=== PATIENT | male | born 1965 | race African-American/Black ===

== ENCOUNTER 2016-07-15 02:52 | Emergency (ER) | payer SELFPAY ==
[~2016-07-15] VITALS: Ht 182.9 cm; Wt 84.5 kg
[~2016-07-15 02:52] MED LIST: ASPI-664 PO; CYCL-319 PO; HYDR-3720 PO; HYDR-762 PO; IBUP800T25 PO; INSU100V14 SC; LISI-313 PO; MAGN296S40 PO; NAPR-260 PO; NAPR-688 PO; NPH,100V SC; POLY17PO6 PO
[2016-07-15 03:02] VITALS: Ht 182.9 cm; Wt 84.5 kg
== END 2016-07-15 03:12 | disposition left against medical advice (07) ==
LOC: E/R 02:52
DX: Z53.21 Procedure and treatment not carried out due to patient leaving prior to being seen by health care provider (principal)
CPT/HCPCS: 82962

== ENCOUNTER 2016-12-19 07:15 | Inpatient (IN) | payer OTHER ==
[~2016-12-19] VITALS: Ht 182.9 cm; Wt 85.0 kg
[2016-12-19 07:18] VITALS: Ht 182.9 cm; Wt 85.0 kg
[2016-12-19] MEDS ORDERED: SOD CHLORIDE 0.9% 1,000 ML IV STA (07:34)
[2016-12-19] MEDS ORDERED: NITROGLYCERIN 2% 1 GM OINT PKT TD STA (07:34)
--- NOTE | 2016-12-19 07:50 | ERA ---
ER Documentation Chief Complaint Date/Time DATE: 12/19/16 TIME: 07:37 Chief Complaint CP HPI 51-year-old male history of diabetes and hypertension presents to the ED via rescue ambulance as a STEMI from the emergency department at [facility]. Patient was awakened at 3 AM with acute onset of severe, sharp and pressure-like midsternal chest pain that radiated to the back with shortness of breath but no nausea, vomiting or diaphoresis. EKG at [facility] revealed diffuse ST segment elevations and with significant risk factors and concerning symptoms in this patient with significant risk factors and concerning symptoms. Patient received aspirin 325 mg and sublingual nitroglycerin 3 with improvement of symptoms. He denies URI symptoms or cough. No leg pain or swelling. No abdominal pain or low back pain. No skin rash. No fevers or chills. ROS All systems reviewed and are negative except as per history of present illness. Medications Home Meds Reported Medications Lisinopril* (Lisinopril*) 10 Mg Tablet, 10 MG PO DAILY, #30 TAB 12/19/16 Insulin Detemir (Levemir Flextouch) 100 Unit/1 Ml Insuln.pen, 50 UNIT SQ DAILY 12/19/16 Metformin Hcl* (Metformin Hcl*) 1,000 Mg Tablet, 1000 MG PO WITH BREAKFAST DINNE , #60 TAB 12/19/16 Hydrocodone/Acetaminophen ([place] 5-325 Tablet) 1 Each Tablet, 1 EACH PO Q6H Y for NEEDED, TAB 12/19/16 Insulin Regular, Human (Humulin R) 100 Units/Ml Vial, 0 SC SLIDING SCALE AC, VIAL 12/06/14 Aspirin* (Aspirin* EC) 81 Mg Tablet.dr, 81 MG PO DAILY, TAB 12/06/14 Discontinued Reported Medications Nph, Human Insulin Isophane (Humulin N) 100 Units/Ml Vial, 45 UNIT SC BID, VIAL 12/06/14 Lisinopril* (Lisinopril*) 5 Mg Tablet, 5 MG PO DAILY, TAB 12/06/14 Discontinued Scripts Naproxen* (Naprosyn*) 500 Mg Tablet, 500 MG PO BID Y for PAIN AND/OR INFLAMMATION, #30 TAB Prov:JONAH SCOTT PA-C 12/27/15 Ibuprofen* (Motrin*) 800 Mg Tab, 800 MG PO Q6H Y for PAIN AND OR ELEVATED TEMP, #30 TAB Prov:BLAINE LEMOS MD 09/13/15 Hydrocodone Bit-Acetaminophen* ([place]*) 10-325 Mg Tablet, 1 TAB PO Q6 Y for PAIN , #10 TAB Prov:PORSHA PURDY PA-C 08/25/15 Ibuprofen* (Motrin*) 800 Mg Tab, 800 MG PO Q6H Y for PAIN AND OR ELEVATED TEMP, #30 TAB Prov:PORSHA PURDY PA-C 08/25/15 Cyclobenzaprine Hcl* (Cyclobenzaprine Hcl*) 10 Mg Tablet, 10 MG PO TID, #20 TAB Prov:PORSHA PURDY PA-C 08/25/15 Hydrocodone Bit-Acetaminophen* ([place]*) 7.5-325 Tablet, 1 TAB PO Q4H Y for PAIN , #14 TAB Prov:AGNES FERNANDEZ DO 06/30/15 Ibuprofen* (Motrin*) 800 Mg Tab, 800 MG PO Q6H Y for PAIN AND OR ELEVATED TEMP, #30 TAB Prov:AGNES FERNANDEZ DO 06/30/15 Naproxen* (Naproxen*) 500 Mg Tablet, 500 MG PO BID Y for PAIN, #10 TAB Prov:STEVENSONKEO DO 12/06/14 Polyethylene Glycol* (Miralax*) 17 Gm Powd.pack, 17 GM PO DAILY, #10 PACKET Prov:STEVENSONKEO DO 12/06/14 Magnesium Citrate* (Magnesium Citrate*) 296 Ml Solution, 296 ML PO ONCE, #1 BOTTLE Prov:KEO GAMINO DO 12/06/14 Allergies Allergies: Coded Allergies: No Known Allergy (Unverified , 12/19/16) PMhx/Soc Reviewed in chart. As per HPI. History of Surgery: Yes (Oral Cyst Biopsy, RIGHT MIDDLE FINGER(1980s)) Anesthesia Reaction: No Hx Neurological Disorder: Yes (Neuropathy) Hx Respiratory Disorders: No Hx Cardiac Disorders: Yes (HTN) Hx Psychiatric Problems: No Hx Miscellaneous Medical Probl: Yes (DM) Hx Alcohol Use: Yes (Social) Hx Substance Use: Yes (Mrijuana) Hx Tobacco Use: Yes (1/2 pack/day) Smoking Status: Former smoker FmHx No stroke or sudden cardiac . No cancer Physical Exam Vitals Vital Signs Date Time Temp Pulse Resp B/P Pulse Ox O2 Delivery O2 Flow Rate FiO2 12/19/16 09:53 76 20 124/56 100 Nasal Cannula 2.0 12/19/16 07:25 89 20 111/74 100 Nasal Cannula 2.0 12/19/16 07:24 Nasal Cannula 2 12/19/16 07:18 98.1 91 18 97/66 99 Physical Exam GENERAL: Sleepy but easily araousable, well-appearing, no acute distress. SKIN: Warm, dry, no rash, No petechiae. No ecchymoses or bruising. HEAD: Atraumatic NECK: Supple, no tenderness, full range of motion. No lymphadenopathy. EYES: Pupils are equal, round and reactive to light, extraocular movements are intact, Conjunctiva, not injected, sclera anicteric. ENT: Mucous membranes are moist. Pharynx is clear without erythema or exudate. CARDIOVASCULAR: Regular rate and rhythm, S1, S2, No murmurs, rubs or gallops. No edema Pulses are 4+ in all extremities. RESPIRATORY: Breath sounds are equal bilaterally. No rales, rhonchi or wheezes. CHEST WALL: No tenderness or deformity. No ecchymosis or bruising GASTROINTESTINAL: Bowel sounds present, nondistended. Soft, nontender, no rebound or guarding. No masses or abnormal pulsations. BACK: No spinal tenderness or paraspinal muscle spasm. No costovertebral angle tenderness. MUSCULOSKELETAL: Normal ROM, no deformity. No calf swelling or tenderness, NEUROLOGIC: Alert and oriented. CN II-XII intact. No focal neurological deficit observed. Normal speech. LYMPHATICS: No gross cervical, axillary or inguinal lymphadenopathy. No Lymphedema. PSYCHIATRIC: Cooperative. Appropriate mood and affect. Patient does not appear anxious or depressed. Result Diagram: 12/19/1671912/19/1620 Results 24 hrs Laboratory Tests Test 12/19/16 07:20 White Blood Count 8.010^3/ul Red Blood Count 4.4010^6/ul Hemoglobin 13.2g/dl Hematocrit 40.3% Mean Corpuscular Volume 91.6fl Mean Corpuscular Hemoglobin 30.0pg Mean Corpuscular Hemoglobin Concent 32.8g/dl Red Cell Distribution Width 12.2% Platelet Count 39216^3/UL Mean Platelet Volume 9.7fl Neutrophils % 49.8% Lymphocytes % 37.5% Monocytes % 9.9% Eosinophils % 1.9% Basophils % 0.6% Nucleated Red Blood Cells % 0.0/100WBC Neutrophils # (Manual) 4.010^3/ul Lymphocytes # 3.010^3/ul Monocytes # 0.810^3/ul Eosinophils # 0.210^3/ul Basophils # 0.110^3/ul Nucleated Red Blood Cells # 0.010^3/ul Prothrombin Time 11.5Sec Prothrombin Time Ratio 0.9 INR International Normalized Ratio 0.84 Activated Partial Thromboplast Time 26.4Sec Sodium Level 132mmol/L Potassium Level 4.3mmol/L Chloride Level 101mmol/L Carbon Dioxide Level 24mmol/L Anion Gap 11 Blood Urea Nitrogen 19mg/dl Creatinine 0.85mg/dl Glucose Level 377mg/dl Calcium Level 9.2mg/dl Total Bilirubin 0.1mg/dl Direct Bilirubin 0.00mg/dl Indirect Bilirubin 0.1mg/dl Aspartate Amino Transf (AST/SGOT) 48IU/L Alanine Aminotransferase (ALT/SGPT) 91IU/L Alkaline Phosphatase 106IU/L Troponin I < 0.012ng/ml Total Protein 6.7g/dl Albumin 3.6g/dl Globulin 3.10g/dl Albumin/Globulin Ratio 1.16 Ethyl Alcohol Level < 10.0mg/dl Current Medications Medications (Trade) Dose Ordered Sig/Anupama Route PRN Reason Start Time Stop Time Status Last Admin Dose Admin Sodium Chloride (NS) 1,000 ml @ 1,000 mls/hr Q1H STAT IV 12/19/16 07:34 12/19/16 08:33 DC 12/19/16 07:40 Nitroglycerin (Nitroglycerin 2% Oint) 1 inch ONCE STAT TD 12/19/16 07:34 12/19/16 07:36 DC 12/19/16 09:54 ROCEDURE: XR Chest. CLINICAL INDICATION: Chest pain. TECHNIQUE: Single frontal view of the chest was obtained. COMPARISON: Chest x-ray 12/19/2016 07:44 a.m. FINDINGS: The soft tissues are normal. There are degenerative osteophytes in the thoracic spine. There is a suboptimal inspiration given the heart is somewhat transverse configuration. The heart, cardiomediastinal silhouette and hilar structures are normal. The pulmonary vasculature is normal. There is a suboptimal inspiration. There is a left-sided aorta. The lungs are clear. The costophrenic angles are normal. IMPRESSION: 1. Spine. No evidence of active cardiopulmonary disease. RPTAT:AAJJ Physician Reta Date Time Electronically viewed and signed by Jere Block Physician on 12/19/2016 08:11 JM/ EKG#1: Time: 07:15. Sinus rhythm. Ventricular rate 93. Normal SD and QRS. J- point elevations in leads V3 through V6 to 3 and aVF consistent with early repolarization. No acute ST segment elevation or depression. No ectopy. EP interpretation: Borderline ECG EKG#2: Time: 07:55. Sinus rhythm. Ventricular rate 83. Normal SD and QRS. J- point elevations in leads V3 through V6 to 3 and aVF consistent with early repolarization. No acute ST segment elevation or depression. No ectopy. Unchanged. EP interpretation: Borderline ECG Procedures/MDM DOCUMENTS REVIEWED: ED nurse, Emergency department medical records from [facility] and EMS report. ED COURSE: Patient was immediately placed on a gurney. EKG was performed. Patient is already received aspirin and sublingual nitroglycerin. Cardiology paged. No criteria for ST segment elevation myocardial infarction. REEXAMINATION/REEVALUATION: Time: 08:00. Doing well. Sinus rhythm without ectopy. No chest pain. MEDICAL DECISION MAKIN-year-old male history of diabetes and hypertension presents to the ED via rescue ambulance as a STEMI from the emergency department at [facility]. Serial EKGs revealed no evidence of ST segment elevations consistent with acute ischemia. Troponin is not elevated. No radiographic evidence of pneumonia or pneumothorax. Doubt pulmonary embolism or aortic dissection. Patient with high risk for acute coronary syndrome presents with atypical chest pain. Evaluated in the ED by cardiology. No indication for acute intervention. Will be admitted for further risk stratification. Counseled patient regarding diagnosis, diagnostic results and plan for admission. CRITICAL CARE TIME: Due to the high probability of sudden clinically significant respiratory, hemodynamic and cardiovascular deterioration, this patient with chest pain and possible STEMI required multiple, frequent reevaluations of vital signs and response to therapy. Additional critical care time was spent in Interpretation of relevant clinical data including labs and imaging studies and consultation with The welding machine operator arc, And arranging ongoing care and admission with the admitting physician Dr. Reyes. TOTAL CRITICAL CARE TIME: 35 minutes not including other separately reportable procedures. CALLS/CONSULTS: Time 07:15, Dr. Aquiles Roman, Recommends EKG is transmitted. Will check troponin prior to decision regarding acute intervention. 08:15 At bedside. Agrees that no criteria for STEMI or acute intervention. Recommends admission for further risk stratification PATIENT CARE TRANSITIONED: Time: 09:50, Dr. Cohen. Admission to telemetry. Departure Diagnosis: Primary Impression: Chest pain with high risk for cardiac etiology Additional Impressions: Diabetes mellitus out of control Qualified Code: E11.8 - Uncontrolled type 2 diabetes mellitus with complication, with long-term current use of insulin Hypertension Qualified Code: I10 - Essential hypertension Condition: Serious PREETI BEAL MD Dec 19, 2016 07:47 PREETI BEAL MD Dec 19, 2016 07:47
--- NOTE | 2016-12-19 08:11 | RADRPT ---
PROCEDURE: XR Chest. CLINICAL INDICATION: Chest pain. TECHNIQUE: Single frontal view of the chest was obtained. COMPARISON: Chest x-ray 12/19/2016 07:44 a.m. FINDINGS: The soft tissues are normal. There are degenerative osteophytes in the thoracic spine. There is a s uboptimal inspiration given the heart is somewhat transverse configuration. The heart, cardiomedias tinal silhouette and hilar structures are normal. The pulmonary vasculature is normal. There is a tavarez boptimal inspiration. There is a left-sided aorta. The lungs are clear. The costophrenic angles ar e normal. IMPRESSION: 1. Spine. No evidence of active cardiopulmonary disease. RPTAT:AAJJ Physician Reta Date Time Electronically viewed and signed by Jere Block Physician on 12/19/2016 08:11 /
[2016-12-19 08:20] LABS: BASOPHIL # 0.1 10^3/ul (0.0-0.1); BASOPHILS % 0.6 % (0.0-2.0); EOSINOPHILS # 0.2 10^3/ul (0.0-0.5); EOSINOPHILS % 1.9 % (0.0-7.0); HEMATOCRIT 40.3 % (42.0-52.0); HEMOGLOBIN 13.2 g/dl (14.0-18.0); LYMPHOCYTES % 37.5 % (15.0-51.0); MEAN CORPUSCULAR HGB CONC 32.8 g/dl (32.0-37.0); MEAN CORPUSCULAR VOLUME 91.6 fl (82.0-101.0); MEAN PLATELET VOLUME 9.7 fl (7.4-10.4); MONOCYTE # 0.8 10^3/ul (0.3-0.9); MONOCYTES % 9.9 % (0.0-11.0); NEUTROPHILS % 49.8 % (39.0-77.0); PLATELET COUNT 242 10^3/UL (140-415); RED CELL DISTRIBUTION WIDTH 12.2 % (11.5-14.5)
[2016-12-19 08:22] LABS: ALANINE AMINOTRANSFERASE 91 IU/L (13-69); ALBUMIN 3.6 g/dl (3.3-4.9); ALBUMIN/GLOBULIN RATIO 1.16; ALKALINE PHOSPHATASE 106 IU/L (42-121); ANION GAP 11 (8-16); ASPARTATE AMINO TRANSFERASE 48 IU/L (15-46); BILIRUBIN,INDIRECT 0.1 mg/dl (0-1.1); BILIRUBIN,TOTAL 0.1 mg/dl (0.2-1.3); BLOOD UREA NITROGEN 19 mg/dl (7-20); CALCIUM 9.2 mg/dl (8.4-10.2); CARBON DIOXIDE 24 mmol/L (21-31); CHLORIDE 101 mmol/L (97-110); CREATININE 0.85 mg/dl (0.61-1.24); GLUCOSE 377 mg/dl (70-220); POTASSIUM 4.3 mmol/L (3.5-5.1); SODIUM 132 mmol/L (135-144); TOTAL PROTEIN 6.7 g/dl (6.1-8.1)
[2016-12-19 08:24] LABS: INR 0.84; PROTIME 11.5 Sec (12.2-14.2); PT RATIO 0.9
[2016-12-19 08:25] LABS: PARTIAL THROMBOPLASTIN TIME 26.4 Sec (25.0-35.0)
[2016-12-19 08:36] LABS: TROPONIN-I < 0.012 ng/ml (0.00-0.12)
--- NOTE | 2016-12-19 08:51 | CONS ---
Date/Time of Note Date/Time of Note DATE: 12/19/16 TIME: 08:43 Assessment/Plan Assessment/Plan Chief Complaint/Hosp Course Chest pain: By history somewhat atypical and may be chest wall pain. The initial EKGs show <0.5mm diffuse ST elevation likely from early repolarization in this young gentleman. No pathologic ST elevation. Bedside echo shows normal EF and no wall motion abnormalities, no effusion. He had a trop at [facility] which was negative and now one here which is also negative. Mediastinum on CXR looks normal as well. For now, would continue to trend trops and plan for stress testing likely Wednesday. DM HTN -ASA, lipitor -metoprolol 12.5mg BID if BP tolerates -if recurrence of chest pain, consider CTA of chest to evaluate for PE or less likely dissection Problems: Consultation Date/Type/Reason Admit Date/Time Date of Consultation: Dec 19, 2016 Type of Consultation: Cardiology Reason for Consultation Chest pain, ?STEMI Referring Provider: PREETI BEAL MD Hx of Present Illness 51 yo M with a h/o DM, HTN, who presented initially to [facility] with chest pain and was found to have a concerning EKG (possible STEMI) for which he was sent to [facility] for emergent cardiac cath. I was called by the ED MD and we reviewed the EKG and discussed the case. I did not feel at that time that the EKG met STEMI criteria. Upon interviewing the pt, he notes that he had pressure like chest pain which started around midnight and was ongoing until he came to the ED, at which time it subsided. He has had this pain before and workup has been unrevealing. He was resting when the symptoms started. He denies exertional symptoms in the past. No SOB, orthopnea, PND, edema. per HPI Past Medical History DM, HTN Social History Smoking Status: Former smoker Exam/Review of Systems Vital Signs Vitals Vital Signs Date Time Temp Pulse Resp B/P Pulse Ox O2 Delivery O2 Flow Rate FiO2 12/19/16 07:25 89 20 111/74 100 Nasal Cannula 2.0 12/19/16 07:18 98.1 Exam Constitutional: alert, oriented Psych: no complaints Head: atraumatic, normocephalic Neck: supple, No jvd Respiratory: clear to auscultation, No crackles/rales Cardiovascular: regular rate and rhythm, No edema, No systolic murmur Gastrointestinal: non-tender, soft Musculoskeletal: nl extremities to inspection Extremities: normal pulses Neurological: nl mental status, nl speech Results Result Diagram: 12/19/16 0720 12/19/16 0720 Results 24 hrs Laboratory Tests Test 12/19/16 07:20 White Blood Count 8.0 Red Blood Count 4.40 L Hemoglobin 13.2 L Hematocrit 40.3 L Mean Corpuscular Volume 91.6 Mean Corpuscular Hemoglobin 30.0 Mean Corpuscular Hemoglobin Concent 32.8 Red Cell Distribution Width 12.2 Platelet Count 242 Mean Platelet Volume 9.7 Neutrophils % 49.8 Lymphocytes % 37.5 Monocytes % 9.9 Eosinophils % 1.9 Basophils % 0.6 Nucleated Red Blood Cells % 0.0 Neutrophils # (Manual) 4.0 Lymphocytes # 3.0 H Monocytes # 0.8 Eosinophils # 0.2 Basophils # 0.1 Nucleated Red Blood Cells # 0.0 Prothrombin Time 11.5 L Prothrombin Time Ratio 0.9 INR International Normalized Ratio 0.84 Activated Partial Thromboplast Time 26.4 Sodium Level 132 L Potassium Level 4.3 Chloride Level 101 Carbon Dioxide Level 24 Anion Gap 11 Blood Urea Nitrogen 19 Creatinine 0.85 Glucose Level 377 H Calcium Level 9.2 Total Bilirubin 0.1 L Direct Bilirubin 0.00 Indirect Bilirubin 0.1 Aspartate Amino Transf (AST/SGOT) 48 H Alanine Aminotransferase (ALT/SGPT) 91 H Alkaline Phosphatase 106 Troponin I < 0.012 Total Protein 6.7 Albumin 3.6 Globulin 3.10 Albumin/Globulin Ratio 1.16 Ethyl Alcohol Level < 10.0 KAITLIN FREEMAN Dec 19, 2016 08:51
[2016-12-19] MEDS ORDERED: ACETAMINOPHEN 325 MG TAB PO PRN ×2 (10:30→11:30)
[2016-12-19] MEDS ORDERED: ONDANSETRON 4 MG INJ IV PRN ×2 (10:30→11:30)
[2016-12-19] MEDS ORDERED: METF1000 PO (10:40)
[2016-12-19] MEDS ORDERED: HYDR-906 PO (10:40)
[2016-12-19] MEDS ORDERED: INSU100I27 SQ (10:41)
[2016-12-19] MEDS ORDERED: LISI10TA2 PO (10:42)
[2016-12-19] MEDS: ACCU-CHEK XX SCH ×3 (11:30→20:12)
[2016-12-19] MEDS ORDERED: INSULIN DETEMIR [LEVEMIR] 3ML CART SC SCH (11:30)
[2016-12-19] MEDS ORDERED: GLUCOSE GEL 15 GRAM TUBE BUCCAL PRN (12:00)
[2016-12-19] MEDS ORDERED: GLUCAGON 1 MG INJ IM PRN (12:00)
[2016-12-19] MEDS ORDERED: DEXTROSE 50% 50 ML SYRINGE IV PRN ×2 (12:00)
[2016-12-19] MEDS: INSULIN ASPART [NOVOLOG] 3 ML PEN SC SCH ×3 (12:00→20:12)
[2016-12-19] MEDS ORDERED: GLUCOSE GEL 15 GRAM TUBE PO PRN ×2 (12:00)
--- NOTE | 2016-12-19 13:27 | HP ---
DATE OF ADMISSION: 12/19/2016 CHIEF COMPLAINT: Chest pain. HISTORY OF PRESENT ILLNESS: Mr. Martinez, presented to the Emergency room at [facility] with chest pain and is transferred to [facility] with concerning EKG changes. The patient states that he began having this pain last night while he was at home watching television, that his pain is central and sharp,h which comes and goes and lasts for approximately 30 seconds at an occasion. He denies any associated nausea, vomiting, or diaphoresis. The patient denies any pleuritic component to this, or reproducible tenderness. He does state that he did have recent cocaine use. PAST MEDICAL HISTORY: Significant for diabetes and hypertension. MEDICATIONS: As an outpatient include Levemir and sliding-scale insulin. Metformin 1000 mg twice a day, aspirin 81 mg daily, and lisinopril 10 mg daily. ALLERGIES: NO KNOWN DRUG ALLERGIES. SOCIAL HISTORY: Patient lives in [place] at a intermediate, and is independent of activities of daily living. Smokes approximately a pack per day. Does drink alcohol but states his last use was several days ago, where he had 1 beer only. Does have a cocaine history as stated above. FAMILY HISTORY: Noncontributory. REVIEW OF SYSTEMS: Five systems were reviewed and found not to be revealing. PHYSICAL EXAMINATION: VITAL SIGNS: On examination, blood pressure is 111/74, pulse rate 89, respirations 20, and temperature is 98.1. GENERAL: The patient is a pleasant man in no acute distress, alert and oriented x3. HEENT: Normocephalic, atraumatic. Without evidence of scleral icterus or perioral cyanosis. Mucous membranes moist. NECK: Soft and supple, without masses. No jugular venous distention. No carotid bruits. CHEST: Clear to auscultation percussion bilaterally. HEART: Regular rate and rhythm. S1-S2. No added sounds. ABDOMEN: Soft, nontender, nondistended, without palpable hepatosplenomegaly. EXTREMITIES: Without clubbing, cyanosis, or edema. SKIN: Without rashes. NEUROLOGIC: Grossly intact. LABORATORY STUDIES: Reveal hemoglobin 13.2 g/dL, white count of 8000, platelets of 242,000. INR 0.84. Sodium 132, potassium 4.3, chloride 101, bicarb 24, BUN 19, creatinine 0.85, glucose 377. Liver function tests remarkable for ALT 91, AST 48. Troponin is negative. Alcohol screen is negative. EKG: The EKG does show evidence of ST-segment elevations rather diffusely and is felt to be repolarization abnormality. Patient has already been seen by cardiology and is deemed not an emergent cath lab radiology technician candidate. ASSESSMENT AND PLAN: 1. Cardiac: Patient with atypical chest pain. We will plan to further risk stratify with serial troponin's an echocardiogram. 2. Cocaine abuse. 3. Diabetes. 4. Prophylaxis with Lovenox. Dictated By: Ralph Reyes MD /rhea/felicitas /Document#: [id number]
[2016-12-19 15:55] VITALS: BP 128/73; PULSE 93; RESP 18
[2016-12-19 16:00] VITALS: PULSE 102
[2016-12-19 16:51] LABS: CREATINE KINASE 85 IU/L (23-200)
[2016-12-19 16:52] LABS: CK-MB 2.63 ng/ml (0.0-2.4)
[2016-12-19 17:19] LABS: TROPONIN-I < 0.012 ng/ml (0.00-0.12)
[2016-12-19] MEDS: metFORMIN 500 MG TAB PO SCH (18:14)
[2016-12-19 20:04] VITALS: PULSE 87
[2016-12-19 20:15] VITALS: BP 110/59; RESP 20
[2016-12-19 23:27] LABS: CREATINE KINASE 70 IU/L (23-200)
[2016-12-19 23:40] LABS: CK-MB 2.07 ng/ml (0.0-2.4); TROPONIN-I < 0.012 ng/ml (0.00-0.12)
[2016-12-20] VITALS (12 sets, daily range): BP systolic 107–147; BP diastolic 60–93; PULSE 72–117; RESP 17–20
[2016-12-20] MEDS: ACCU-CHEK XX SCH ×4 (02:00→21:00)
[2016-12-20] MEDS: morphine 2 MG INJ IV PRN ×2 (02:11→08:27)
[2016-12-20] MEDS: metFORMIN 500 MG TAB PO SCH ×2 (07:55→17:55)
[2016-12-20] MEDS: INSULIN ASPART [NOVOLOG] 3 ML PEN SC SCH ×4 (07:58→21:12)
[2016-12-20] MEDS: ASPIRIN (EC) 81 MG TAB PO SCH (08:24)
[2016-12-20] MEDS: LISINOPRIL 10 MG TAB PO SCH (08:24)
--- NOTE | 2016-12-20 11:04 | RADRPT ---
Echocardiogram Report Patient Name: SHARON MEJIAS Gender: Male Date: 1965 Study Date: 19-Dec-2016 Lumber Material Handler: Mark Shields [facility] Location: -1 Ref. Physician: KAITLIN ROMAN Quality: Adequate Procedures: Transthoracic echocardiogram with complete 2D, M-Mode, and doppler examination. Indications: NSTEMI. 2D/M Mode Doppler Measurement Value Normal Ranges Measurement Value Normal Ranges LVIDd 2D 4.3 3.5 - 5.6 cm AV Peak Bj 1.2 m/sec LVIDs 2D 2.9 2.1 - 4.1 cm AV Peak PG 5.0 mmHg FS 2D 31.7 % LVOT Peak Bj 0.8 m/sec LVPWd 2D 1.3 0.6 - 1.1 cm LVOT Peak PG 3.0 mmHg IVSd 2D 1.3 0.6 - 1.1 cm MV E Peak Bj 0.7 m/sec IVS/LVPW 2D 1.0 MV A Peak Bj 0.7 m/sec AoR Diam 2D 3.0 2.0 - 3.7 cm MV E/A 1.0 LA/Ao 2D 1 0 - 1 MV Decel Time 151 msec EDV 2D 79.0 cm3 MV E/A 1.0 ESV 2D 25.2 cm3 TR Peak Bj 2.3 m/sec LA Dimen 2D 3.7 2.3 - 4.0 cm TR Peak PG 20.0 mmHg RVSP 23.0 mmHg Findings Left Ventricle: Normal left ventricular systolic function. Normal left ventricular cavity size. Mild concentric left ventricular hypertrophy. Ejection fraction is visually estimated at 60 %. Tissue Doppler/Mitral Doppler indices are consistent with impaired relaxation (Stage I diastolic dysfunction). Right Ventricle: Normal right ventricular size. Normal right ventricular systolic function. Left Atrium: There is mild enlargement of left atrium. Right Atrium: There is mild enlargement of right atrium. Mitral Valve: Mild mitral leaflet calcification. Trace mitral regurgitation. Aortic Valve: Normal appearance of the aortic valve. No significant aortic stenosis or insufficiency. Tricuspid Valve: Normal appearance of the tricuspid valve. Estimated peak PA systolic pressure 23 mmHg. There is mild tricuspid regurgitation. Pulmonic Valve: Pulmonic valve not well visualized. There is trace pulmonic regurgitation. Pericardium: Normal pericardium with no significant pericardial effusion. Aorta: Normal aortic root. IVC: Normal size and normal respiratory collapse consistent with normal right atrial pressure. Conclusions 1.Normal left ventricular systolic function. Normal left ventricular cavity size. Mild concentric left ventricular hypertrophy. Ejection fraction is visually estimated at 60 %. Tissue Doppler/Mitral Doppler indices are consistent with impaired relaxation (Stage I diastolic dysfunction). 2.No significant valvular stenosis or regurgitation seen. 3.Estimated peak PA systolic pressure 23 mmHg based on RA pressure of 3 mmHg. Electronically Signed By: Kaitlin Roman 20-Dec-2016 11:04:03 -0700 Patient Name: SHARON MEJIAS Study Date: 19-Dec-2016 [id number]
--- NOTE | 2016-12-20 11:37 | PN ---
Date/Time of Note Date/Time of Note DATE: 12/20/16 TIME: 11:35 Assessment/Plan VTE Prophylaxis VTE Prophylaxis Intervention: anti-embolic stocking Lines/Catheters IV Catheter Type (from Nrsg): Saline Lock Assessment/Plan Assessment/Plan 1. cards: atypical chest pain, await stress in am 2. pulm: cta to r/o dissection or PE as cause cp 3. ?gerd, start pepcid 4. anticipate d/c home in am 5/ ?cocaine use, await tox Subjective 24 Hr Interval Summary Free Text/Dictation still having intermittant chest pain states that he has chronic back pain for which he takes oxycontin 30mg bid, will prescribe 50% dose Exam/Review of Systems Vital Signs Vitals Vital Signs Date Time Temp Pulse Resp B/P Pulse Ox O2 Delivery O2 Flow Rate FiO2 12/20/16 08:04 98 12/20/16 04:08 98.3 20 107/78 97 12/19/16 15:55 Room Air 12/19/16 13:41 2.0 Intake and Output 12/19/16 12/19/16 12/20/16 15:00 23:00 07:00 Intake Total 950 ml Output Total 400 ml Balance 550 ml Exam nad, ctab, rrr, soft nt Results Result Diagram: 12/19/16 0720 12/19/16 0720 Results 24 hrs Laboratory Tests Test 12/19/16 13:49 12/19/16 15:45 12/19/16 17:17 12/19/16 20:02 Bedside Glucose 278 H 329 H 203 Creatine Kinase 85 Creatine Kinase Index 3.1 Creatinine Kinase MB (Mass) 2.63 H Troponin I < 0.012 Test 12/19/16 22:13 12/20/16 02:16 12/20/16 07:52 Creatine Kinase 70 Creatine Kinase Index 3.0 Creatinine Kinase MB (Mass) 2.07 Troponin I < 0.012 Bedside Glucose 208 303 H Medications Medications Current Medications Acetaminophen (Tylenol Tab) 650 mg Q4H PRN PO pain/fever; Start 12/19/16 at 11: 30 Hydralazine HCl (Apresoline) 25 mg Q6H PRN PO sbp>160; Start 12/19/16 at 11:30 Ondansetron HCl (Zofran Inj) 4 mg Q4H PRN IV nausea Last administered on 02:11; Admin Dose 4 MG; Start 12/19/16 at 11:30 Morphine Sulfate (morphine) 2 mg Q2H PRN IV pain Last administered on 08:27; Admin Dose 2 MG; Start 12/19/16 at 11:30 Diagnostic Test (Pha) (Accu-Chek) 1 ea 02 XX ; Start 12/20/16 at 02:00 Aspirin (Halfprin) 81 mg DAILY PO Last administered on 12/20/16 08:24; Admin Dose 81 MG; Start 12/20/16 at 09:00 Lisinopril (Zestril) 10 mg DAILY PO Last administered on 12/20/16 08:24; Admin Dose 10 MG; Start 12/20/16 at 09:00 Insulin Detemir (Levemir) 35 unit Q24H SC Last administered on 12/19/16 11:30; Admin Dose 35 UNIT; Start 12/19/16 at 11:30 Miscellaneous Information 1 ea NOTE XX ; Start 12/19/16 at 12:00 Glucose (Glutose) 15 gm Q15M PRN PO DECREASED GLUCOSE; Start 12/19/16 at 12:00 Glucose (Glutose) 22.5 gm Q15M PRN PO DECREASED GLUCOSE; Start 12/19/16 at 12:00 Dextrose (D50w Syringe) 25 ml Q15M PRN IV DECREASED GLUCOSE; Start 12/19/16 at 12:00 Dextrose (D50w Syringe) 50 ml Q15M PRN IV DECREASED GLUCOSE; Start 12/19/16 at 12:00 Glucagon (Glucagen) 1 mg Q15M PRN IM DECREASED GLUCOSE; Start 12/19/16 at 12:00 Glucose (Glutose) 15 gm Q15M PRN BUCCAL DECREASED GLUCOSE; Start 12/19/16 at 12: 00 GURJIT PORTILLO MD Dec 20, 2016 11:37
--- NOTE | 2016-12-20 11:51 | CONS ---
Date/Time of Note Date/Time of Note DATE: 12/20/16 TIME: 11:50 Assessment/Plan Assessment/Plan Chief Complaint/Hosp Course Chest pain: By history somewhat atypical and may be chest wall pain. The initial EKGs show <0.5mm diffuse ST elevation likely from early repolarization in this young gentleman. No pathologic ST elevation. Trops negative. Echo normal. DM HTN -ASA, lipitor -Lexiscan stress MPI tomorrow at 12:30 pm -NPO after midnight Problems: Consultation Date/Type/Reason Admit Date/Time Dec 19, 2016 at 10:08 Initial Consult Date 12/19/16 Type of Consultation: Cardiology Referring Provider: PREETI BEAL MD 24 HR Interval Summary Free Text/Dictation No o/n events. No chest pain. Exam/Review of Systems Vital Signs Vitals Vital Signs Date Time Temp Pulse Resp B/P Pulse Ox O2 Delivery O2 Flow Rate FiO2 12/20/16 08:04 98 12/20/16 04:08 98.3 20 107/78 97 12/19/16 15:55 Room Air 12/19/16 13:41 2.0 Intake and Output 12/19/16 12/19/16 12/20/16 15:00 23:00 07:00 Intake Total 950 ml Output Total 400 ml Balance 550 ml Exam Constitutional: alert, oriented Psych: no complaints Head: atraumatic, normocephalic Neck: No jvd Respiratory: clear to auscultation, No crackles/rales Cardiovascular: regular rate and rhythm, No edema Gastrointestinal: non-tender, soft Neurological: nl mental status, nl speech Results Result Diagram: 12/19/1671912/19/16 0720 Results 24 hrs Laboratory Tests Test 12/19/16 13:49 12/19/16 15:45 12/19/16 17:17 12/19/16 20:02 Bedside Glucose 278 H 329 H 203 Creatine Kinase 85 Creatine Kinase Index 3.1 Creatinine Kinase MB (Mass) 2.63 H Troponin I < 0.012 Test 12/19/16 22:13 12/20/16 02:16 12/20/16 07:52 Creatine Kinase 70 Creatine Kinase Index 3.0 Creatinine Kinase MB (Mass) 2.07 Troponin I < 0.012 Bedside Glucose 208 303 H Medications Medications Current Medications Acetaminophen (Tylenol Tab) 650 mg Q4H PRN PO pain/fever; Start 12/19/16 at 11: 30 Hydralazine HCl (Apresoline) 25 mg Q6H PRN PO sbp>160; Start 12/19/16 at 11:30 Ondansetron HCl (Zofran Inj) 4 mg Q4H PRN IV nausea Last administered on 02:11; Admin Dose 4 MG; Start 12/19/16 at 11:30 Diagnostic Test (Pha) (Accu-Chek) 1 ea 02 XX ; Start 12/20/16 at 02:00 Aspirin (Halfprin) 81 mg DAILY PO Last administered on 12/20/16 08:24; Admin Dose 81 MG; Start 12/20/16 at 09:00 Lisinopril (Zestril) 10 mg DAILY PO Last administered on 12/20/16 08:24; Admin Dose 10 MG; Start 12/20/16 at 09:00 Miscellaneous Information 1 ea NOTE XX ; Start 12/19/16 at 12:00 Glucose (Glutose) 15 gm Q15M PRN PO DECREASED GLUCOSE; Start 12/19/16 at 12:00 Glucose (Glutose) 22.5 gm Q15M PRN PO DECREASED GLUCOSE; Start 12/19/16 at 12:00 Dextrose (D50w Syringe) 25 ml Q15M PRN IV DECREASED GLUCOSE; Start 12/19/16 at 12:00 Dextrose (D50w Syringe) 50 ml Q15M PRN IV DECREASED GLUCOSE; Start 12/19/16 at 12:00 Glucagon (Glucagen) 1 mg Q15M PRN IM DECREASED GLUCOSE; Start 12/19/16 at 12:00 Glucose (Glutose) 15 gm Q15M PRN BUCCAL DECREASED GLUCOSE; Start 12/19/16 at 12: 00 Insulin Detemir (Levemir) 40 unit Q24H SC ; Start 12/21/16 at 11:30 Oxycodone HCl (Oxycontin) 15 mg BID PO ; Start 12/20/16 at 12:00 Oxycodone/ Acetaminophen (Percocet (5/ 325)) 1 tab Q4H PRN PO PAIN; Start 12/20 at 12:00 Famotidine (Pepcid) 20 mg BID PO ; Start 12/20/16 at 12:00 KAITLIN FREEMNA Dec 20, 2016 11:51
[2016-12-20] MEDS: FAMOTIDINE 20 MG TAB PO SCH ×2 (11:54→20:46)
[2016-12-20] MEDS: oxyCODONE (CR) 15 MG TAB [oxyCONTIN] PO SCH ×2 (11:55→20:46)
[2016-12-20] MEDS ORDERED: OXYCODONE/ACETAMINOPHEN (5/325) TAB PO PRN (12:00)
[2016-12-20] MEDS: INSULIN DETEMIR [LEVEMIR] 3ML CART SC SCH (12:35)
[2016-12-20 22:20] LABS: ADD UMIC NO; UR ASCORBIC ACID NEGATIVE (NEGATIVE); UR BILIRUBIN (Dip) NEGATIVE (NEGATIVE); UR BLOOD (Dip) NEGATIVE (NEGATIVE); UR CLARITY CLEAR (CLEAR); UR COLOR STRAW (YELLOW); UR GLUCOSE (Dip) 3+ mg/dL (NEGATIVE); UR KETONES (Dip) NEGATIVE (NEGATIVE); UR LEUKOCYTE ESTERASE (Dip) NEGATIVE Leu/ul (NEGATIVE); UR NITRITE (Dip) NEGATIVE (NEGATIVE); UR SPECIFIC GRAVITY (Dip) 1.028 (1.003-1.030); UR TOTAL PROTEIN (Dip) NEGATIVE (NEGATIVE); UR UROBILINOGEN (Dip) NEGATIVE (NEGATIVE)
[2016-12-20] MEDS ORDERED: IOHEXOL 300MG/ML 150 ML BTL ONE (22:42)
[2016-12-20] MEDS ORDERED: SOD CHLORIDE 0.9% 100 ML ONE (22:42)
[2016-12-20 22:43] LABS: BARBITURATES Negative (NEGATIVE); BENZODIAZEPINES Negative (NEGATIVE); CANNABINOIDS Negative (NEGATIVE); COCAINE Positive (NEGATIVE); OPIATES Negative (NEGATIVE)
[2016-12-20] MEDS ORDERED: IODIXANOL LOCM 100 ML BTL ONE (22:44)
[2016-12-21] VITALS (10 sets, daily range): BP systolic 123–158; BP diastolic 66–91; PULSE 74–90; RESP 19–20
--- NOTE | 2016-12-21 01:06 | RADRPT ---
PROCEDURE: CT angiogram of the chest with contrast. CLINICAL INDICATION: Chest pain. TECHNIQUE: CT angiogram of the chest was obtained using a multi-detector high-resolution CT. Con tiguous axial images were obtained during the dynamic injection of 100 cc of Omnipaque 350 intraveno us contrast. Coronal and sagittal reformatted images were obtained. 3-D reformatted images were al so obtained. Images were reviewed on a PACS workstation. One or more of the following dose reduction techniques were used: - Automated exposure control. - Adjustment of the mA and/or kV according to patient size. - Use of iterative reconstruction technique. Exam CTD/vol = 14.01 mGy. Total exam DLP = 584.54 mGy-cm. COMPARISON: None. FINDINGS: The main pulmonary artery followed to the segmental divisions are well opacified. There is no filli ng defect or evidence of pulmonary embolism. The heart is normal in size. There is no pericardial thickening or effusion. The aorta is of normal course and caliber without evidence of aneurysm or d issection. There is no evidence of chest wall mass. The visualized thyroid is unremarkable. There are no enla rged axillary lymph nodes. There are no enlarged mediastinal or hilar lymph nodes by CT criteria. There is mild bibasilar atelectasis. There is no parenchymal nodule or consolidation. There is no p leural effusion. The central tracheobronchial tree is within normal limits. Limited evaluation of the upper abdomen is unremarkable. IMPRESSION: No evidence of pulmonary embolism or aortic dissection. Mild bibasilar atelectasis. .Andrew Henning MD, MD Date Time Electronically viewed and signed by .Andrew Henning MD, MD on 12/21/2016 01:05 .T/
[2016-12-21] MEDS: ACCU-CHEK XX SCH ×4 (02:00→17:12)
[2016-12-21] MEDS: INSULIN ASPART [NOVOLOG] 3 ML PEN SC SCH ×3 (07:55→17:12)
[2016-12-21] MEDS: metFORMIN 500 MG TAB PO SCH ×2 (07:55→17:26)
[2016-12-21] MEDS: ASPIRIN (EC) 81 MG TAB PO SCH (08:19)
[2016-12-21] MEDS: oxyCODONE (CR) 15 MG TAB [oxyCONTIN] PO SCH (08:19)
[2016-12-21] MEDS: FAMOTIDINE 20 MG TAB PO SCH (08:19)
[2016-12-21] MEDS: LISINOPRIL 10 MG TAB PO SCH (08:20)
--- NOTE | 2016-12-21 11:38 | PN ---
Date/Time of Note Date/Time of Note DATE: 12/21/16 TIME: 11:23 Assessment/Plan VTE Prophylaxis VTE Prophylaxis Intervention: ambulation, SCD's Lines/Catheters IV Catheter Type (from Nrsg): Saline Lock Assessment/Plan Assessment/Plan 51-year-old male with: 1. Chest pain, atypical, patient has recurrent admissions for this atypical chest pain admission coronary the hospital, he was transferred from [facility] due to concern for ST elevation NV. His EKG findings were chronic more consistent with J-point elevation according to cardiology, he has been evaluated by cardiology on admission, CT angiogram of the chest is negative, the pain is thought to be atypical therefore stress test will be done today. Pepcid for GERD If stress test is negative discharge plan is for a later today. 2. Chronic back pain: he reports multiple herniated disks, he keeps requesting pain management apparently through his insurance and so far has not been successful. It is doubtful that he went through any process to get pain management as the patient does not even have a primary care physician currently. Will be given a few pills of OxyContin and Percocet for pain control, however he needs to follow-up with a primary care physician and referred to pain management if appropriate. 3. Diabetes mellitus: Controlled most of the time secondary to noncompliance with medication and diet. Patient always claimed he does run out of his insulin and has not been able to get to a primary care physician. He will be getting prescriptions for insulin on discharge, I will check with his insurance which insulins are covered. 4. Cocaine use: Patient claimed that he used to 2 days ago for "pain control" for his chronic back pain due to the fact that he did not have access to a primary care physician or pain management to have a new prescription for narcotics. Prophylaxis: Pepcid for GI prophylaxis, Disposition: Stress test plan at 12:30 PM today, likely discharge planning by 3 PM if stress test is negative. Subjective 24 Hr Interval Summary Free Text/Dictation Patient reports that he mostly has back pain, likely with radiation to the chest wall. He is very manipulative, he was transferred from [facility] as a potential STEMI code due to some chronic elevation J-point on EKG. Cardiac workup so far has been negative and stress test is pending today. If stress test negative discharge planning on or before home. Patient is a cocaine user, he ran out of all his medications again, he claims he ran out of all pain medication 2 months ago and has been unable to refill. He also claimed that he ran out of insulin 24-48 hours prior to presentation to the ER at [facility]. Exam/Review of Systems Vital Signs Vitals Vital Signs Date Time Temp Pulse Resp B/P Pulse Ox O2 Delivery O2 Flow Rate FiO2 12/21/16 11:19 98.2 81 19 158/91 98 12/20/16 13:20 Room Air 12/19/16 13:41 2.0 Exam Constitutional: alert, oriented, well developed Respiratory: clear to auscultation, normal air movement Cardiovascular: nl pulses, regular rate and rhythm Gastrointestinal: non-tender, soft Musculoskeletal: other (Patient does have old healing ulceration on his toes, no signs of active infection.) Extremities: normal pulses, other (No edema, clubbing or cyanosis) Neurological: [employer]GER II-XII intact, nl mental status, nl speech, nl strength Results Result Diagram: 12/19/16 0720 12/19/16 0720 Results 24 hrs Laboratory Tests Test 12/20/16 11:56 12/20/16 17:17 12/20/16 19:00 12/20/16 21:08 Bedside Glucose 254 H 423 *H 291 H Urine Color STRAW Urine Clarity CLEAR Urine pH 5.0 Urine Specific [place] 1.028 Urine Ketones NEGATIVE Urine Nitrite NEGATIVE Urine Bilirubin NEGATIVE Urine Urobilinogen NEGATIVE Urine Leukocyte Esterase NEGATIVE Urine Hemoglobin NEGATIVE Urine Glucose 3+ H Urine Total Protein NEGATIVE Urine Opiates Screen Negative Urine Barbiturates Negative Urine Amphetamines Screen Negative Urine Benzodiazepines Screen Negative Urine Cocaine Screen Positive Urine Cannabinoids Negative Test 12/21/16 08:26 Bedside Glucose 236 H Medications Medications Current Medications Acetaminophen (Tylenol Tab) 650 mg Q4H PRN PO pain/fever; Start 12/19/16 at 11: 30 Hydralazine HCl (Apresoline) 25 mg Q6H PRN PO sbp>160; Start 12/19/16 at 11:30 Ondansetron HCl (Zofran Inj) 4 mg Q4H PRN IV nausea Last administered on t 02:11; Admin Dose 4 MG; Start 12/19/16 at 11:30 Diagnostic Test (Pha) (Accu-Chek) 1 02 XX ; Start 12/20/16 at 02:00 Aspirin (Halfprin) 81 mg DAILY PO Last administered on 12/21/16 08:19; Admin Dose 81 MG; Start 12/20/16 at 09:00 Lisinopril (Zestril) 10 mg DAILY PO Last administered on 12/21/16 08:20; Admin Dose 10 MG; Start 12/20/16 at 09:00 Miscellaneous Information 1 ea NOTE XX ; Start 12/19/16 at 12:00 Glucose (Glutose) 15 gm Q15M PRN PO DECREASED GLUCOSE; Start 12/19/16 at 12:00 Glucose (Glutose) 22.5 gm Q15M PRN PO DECREASED GLUCOSE; Start 12/19/16 at 12:00 Dextrose (D50w Syringe) 25 ml Q15M PRN IV DECREASED GLUCOSE; Start 12/19/16 at 12:00 Dextrose (D50w Syringe) 50 ml Q15M PRN IV DECREASED GLUCOSE; Start 12/19/16 at 12:00 Glucagon (Glucagen) 1 mg Q15M PRN IM DECREASED GLUCOSE; Start 12/19/16 at 12:00 Glucose (Glutose) 15 gm Q15M PRN BUCCAL DECREASED GLUCOSE; Start 12/19/16 at 12: 00 Insulin Detemir (Levemir) 40 unit Q24H SC Last administered on 12/20/16 12:35 ; Admin Dose 40 UNIT; Start 12/20/16 at 12:08 Oxycodone HCl (Oxycontin) 15 mg BID PO Last administered on 12/21/16 08:19; Admin Dose 15 MG; Start 12/20/16 at 12:00 Oxycodone/ Acetaminophen (Percocet (5/ 325)) 1 tab Q4H PRN PO PAIN Last administered on 12/21/16 05:37; Admin Dose 1 TAB; Start 12/20/16 at 12:00 Famotidine (Pepcid) 20 mg BID PO Last administered on 12/21/16 08:19; Admin Dose 20 MG; Start 12/20/16 at 12:00 GERALD MIRANDA Dec 21, 2016 11:36
--- NOTE | 2016-12-21 12:03 | CONS ---
Date/Time of Note Date/Time of Note DATE: 12/21/16 TIME: 12:02 Assessment/Plan Assessment/Plan Chief Complaint/Hosp Course Chest pain: By history somewhat atypical and may be chest wall pain. The initial EKGs show <0.5mm diffuse ST elevation likely from early repolarization in this young gentleman. No pathologic ST elevation. Trops negative. Echo normal. Apparently the pt is a frequent flyer at the [facility] ED DM HTN -ASA, lipitor -Lexiscan today. D/c if negative Problems: Consultation Date/Type/Reason Admit Date/Time Dec 19, 2016 at 10:08 Initial Consult Date 12/19/16 Type of Consultation: Cardiology Referring Provider: PREETI BEAL MD 24 HR Interval Summary Free Text/Dictation No chest pain. Stress test today Exam/Review of Systems Vital Signs Vitals Vital Signs Date Time Temp Pulse Resp B/P Pulse Ox O2 Delivery O2 Flow Rate FiO2 12/21/16 11:19 98.2 81 19 158/91 98 12/20/16 13:20 Room Air 12/19/16 13:41 2.0 Exam Constitutional: alert, oriented Psych: no complaints Head: atraumatic, normocephalic Neck: No jvd Respiratory: clear to auscultation, No crackles/rales Cardiovascular: regular rate and rhythm, No edema Gastrointestinal: non-tender, soft Neurological: nl mental status, nl speech Results Result Diagram: 12/19/16 0720 12/19/16 0720 Results 24 hrs Laboratory Tests Test 12/20/16 17:17 12/20/16 19:00 12/20/16 21:08 12/21/16 08:26 Bedside Glucose 423 *H 291 H 236 H Urine Color STRAW Urine Clarity CLEAR Urine pH 5.0 Urine Specific [place] 1.028 Urine Ketones NEGATIVE Urine Nitrite NEGATIVE Urine Bilirubin NEGATIVE Urine Urobilinogen NEGATIVE Urine Leukocyte Esterase NEGATIVE Urine Hemoglobin NEGATIVE Urine Glucose 3+ H Urine Total Protein NEGATIVE Urine Opiates Screen Negative Urine Barbiturates Negative Urine Amphetamines Screen Negative Urine Benzodiazepines Screen Negative Urine Cocaine Screen Positive Urine Cannabinoids Negative Medications Medications Current Medications Acetaminophen (Tylenol Tab) 650 mg Q4H PRN PO pain/fever; Start 12/19/16 at 11: 30 Hydralazine HCl (Apresoline) 25 mg Q6H PRN PO sbp>160; Start 12/19/16 at 11:30 Ondansetron HCl (Zofran Inj) 4 mg Q4H PRN IV nausea Last administered on 02:11; Admin Dose 4 MG; Start 12/19/16 at 11:30 Diagnostic Test (Pha) (Accu-Chek) 1 ea 02 XX ; Start 12/20/16 at 02:00 Aspirin (Halfprin) 81 mg DAILY PO Last administered on 12/21/16 08:19; Admin Dose 81 MG; Start 12/20/16 at 09:00 Lisinopril (Zestril) 10 mg DAILY PO Last administered on 12/21/16 08:20; Admin Dose 10 MG; Start 12/20/16 at 09:00 Miscellaneous Information 1 ea NOTE XX ; Start 12/19/16 at 12:00 Glucose (Glutose) 15 gm Q15M PRN PO DECREASED GLUCOSE; Start 12/19/16 at 12:00 Glucose (Glutose) 22.5 gm Q15M PRN PO DECREASED GLUCOSE; Start 12/19/16 at 12:00 Dextrose (D50w Syringe) 25 ml Q15M PRN IV DECREASED GLUCOSE; Start 12/19/16 at 12:00 Dextrose (D50w Syringe) 50 ml Q15M PRN IV DECREASED GLUCOSE; Start 12/19/16 at 12:00 Glucagon (Glucagen) 1 mg Q15M PRN IM DECREASED GLUCOSE; Start 12/19/16 at 12:00 Glucose (Glutose) 15 gm Q15M PRN BUCCAL DECREASED GLUCOSE; Start 12/19/16 at 12: 00 Insulin Detemir (Levemir) 40 unit Q24H SC Last administered on 12/20/16 12:35 ; Admin Dose 40 UNIT; Start 12/20/16 at 12:08 Oxycodone HCl (Oxycontin) 15 mg BID PO Last administered on 12/21/16 08:19; Admin Dose 15 MG; Start 12/20/16 at 12:00 Oxycodone/ Acetaminophen (Percocet (5/ 325)) 1 tab Q4H PRN PO PAIN Last administered on 12/21/16 05:37; Admin Dose 1 TAB; Start 12/20/16 at 12:00 Famotidine (Pepcid) 20 mg BID PO Last administered on 12/21/16 08:19; Admin Dose 20 MG; Start 12/20/16 at 12:00 KAITLIN FREEMAN Dec 21, 2016 12:03
[2016-12-21] MEDS ORDERED: REGADENOSON 0.4 MG/5 ML SYG ONE (12:27)
--- NOTE | 2016-12-21 12:30 | OPR ---
Date/Time of Note Date/Time of Note DATE: 12/21/16 TIME: 12:29 Operative Report Free Text/Dictation Nuclear medicine myocardial perfusion imaging: Date: 12/21/2016 Indication: chest pain After informed consent, the patient was given IV Lexiscan. Pt was monitored for a total of 8 minutes post-infusion without any sings of arrhythmias. Patient had no chest pain or EKG changes. Please refer to separate note for imaging results. KAITLIN FREEMAN Dec 21, 2016 12:30
[2016-12-21 12:54] LABS: CALCIUM 8.9 mg/dl (8.4-10.2); CREATININE 0.82 mg/dl (0.61-1.24); POTASSIUM 4.4 mmol/L (3.5-5.1)
[2016-12-21] MEDS: INSULIN DETEMIR [LEVEMIR] 3ML CART SC SCH (14:06)
--- NOTE | 2016-12-21 15:38 | RADRPT ---
PROCEDURE: Lexiscan myocardial perfusion study CLINICAL INDICATION: 51 -year-old patient complaining of chest pain. TECHNIQUE: Lexiscan 0.4 mg intravenously separate acquisition gated myocardial perfusion SPECT usi ng Tc 99m Myoview 31.2 mCi intravenously at stress and Tc-99m Myoview, 10.4 mCi intravenously at res t was performed using the rest/stress sequence. Poststress Myoview SPECT images were obtained in th e supine position. COMPARISON: No prior studies. FINDINGS: Perfusion images reveal mild nonreversible perfusion abnormality in the mid to basal inferior wall. Lexiscan post stress gated SPECT images demonstrate mild hypokinesis of the left ventricle. IMPRESSION: 1. No evidence of stress-induced ischemia. 2. Mild hypokinesis of the left ventricle. 3. The left ventricle ejection fraction at stress is 42%. A call report was made to Dr. Roman at 03:35 p.m. on December 21, 2016. RPTAT: HH .Daisy Maddox MD, MD Date Time Electronically viewed and signed by .Daisy Maddox MD, MD on 12/21/2016 15:38 .L/
--- NOTE | 2016-12-21 16:14 | PDOCDIS ---
Discharge Instructions CONDITION Patient Condition: Stable HOME CARE INSTRUCTIONS: Special Diet: ADA diet ACTIVITY: Activity Restrictions: No Restrictions FOLLOW UP/APPOINTMENTS Follow-up Plan Follow up with PCP within 1 to 2 weeks Follow up with Diabetic clinic through [facility] within 1 to 2 weeks GERALD MIRANDA Dec 21, 2016 16:14
[2016-12-21] MEDS ORDERED: OXYC-536 PO (16:26)
[2016-12-21] MEDS ORDERED: FAMO20TA18 PO (16:26)
[2016-12-21] MEDS ORDERED: INSU100I27 SC (16:26)
[2016-12-21] MEDS ORDERED: INSU200I SQ (16:26)
[2016-12-21] MEDS ORDERED: LISI10TA2 PO (16:26)
[2016-12-21] MEDS ORDERED: METF1000 PO (16:26)
== END 2016-12-21 17:29 | disposition home or self-care (01) | DRG 313 ==
LOC: E/R 07:15 → TEL 10:08
PROVIDERS: ADMIT Legal Medicine; ATTEND Legal Medicine
PROC: C23GYZZ Positron Emission Tomographic (PET) Imaging of Myocardium using Other Radionuclide (ICD-10-PCS; principal; 2016-12-21)
DX: R07.89 Other chest pain (principal); E11.65 Type 2 diabetes mellitus with hyperglycemia; I10 Essential (primary) hypertension; F14.10 Cocaine abuse, uncomplicated; F12.90 Cannabis use, unspecified, uncomplicated; G89.29 Other chronic pain; M54.9 Dorsalgia, unspecified; Z91.11 Patient's noncompliance with dietary regimen; Z91.14 Patient's other noncompliance with medication regimen; Z79.4 Long term (current) use of insulin; Z79.82 Long term (current) use of aspirin; Z87.891 Personal history of nicotine dependence
CPT/HCPCS: 36415; 71010; 71275; 78452; 80048; 80053; 80306; 80307; 81003; 82550; 82553; 82962; 83036; 84484; 85025; 85610; 85730; 93005; 93017; 93306; 96372; A9500; A9505; J1815; J2270; J2405; J2785; J7030; Q9967

== ENCOUNTER 2017-07-18 16:01 | Inpatient (IN) | END 2017-07-23 14:25 | disposition home health service (06) | DRG 623 ==

== ENCOUNTER 2017-08-27 07:13 | Emergency (ER) | END 2017-08-27 14:18 | disposition home or self-care (01) ==

== ENCOUNTER 2017-09-04 06:34 | Emergency (ER) | END 2017-09-04 09:34 | disposition home or self-care (01) ==